=== PATIENT | female | born 1990 | race Two or more races ===

== ENCOUNTER → 2023-09-29 13:39 | Outpatient (CLI) | payer OTHER | END | disposition home or self-care (01) | LOC: PRENATAL 13:39 | PROVIDERS: ATTEND Obstetrics & Gynecology Maternal & Fetal Medicine | DX: O26.843 Uterine size-date discrepancy, third trimester (principal); O36.8130 Decreased fetal movements, third trimester, not applicable or unspecified; O36.0930 Maternal care for other rhesus isoimmunization, third trimester, not applicable or unspecified; O99.013 Anemia complicating pregnancy, third trimester; Z3A.31 31 weeks gestation of pregnancy ==